=== PATIENT | male | born 1990 | race Caucasian/White ===

== ENCOUNTER 2023-02-15 00:42 | Emergency (ER) | payer OTHER, SELFPAY ==
[2023-02-15 00:45] VITALS: BP 141/87
[2023-02-15 01:29] LABS: Hematocrit 42.4 % (39.0-52.0); Hemoglobin 15.5 g/dL (13.0-18.0); Mean Corp Hgb Conc. 36.6 g/dL (33.0-37.0); Mean Corpuscular Hgb 32.4 pg (27.0-31.0); Mean Corpuscular Volume 88.5 fL (80.0-94.0); Mean Platelet Volume 8.7 fL (7.4-10.4); Platelet Count 270 10^3/uL (130-400); Red Blood Cell Count 4.79 10^6/uL (4.70-6.10); Red Cell Dist. Width 12.3 % (11.5-14.5); White Blood Cell Count 8.4 10^3/uL (4.8-10.8)
[2023-02-15 01:45] LABS: ALT (SGPT) 31 U/L (0-50); AST (SGOT) 35 U/L (17-59); Albumin 4.7 g/dl (3.5-5.0); Alkaline Phosphatase 73 U/L (38-126); Blood Urea Nitrogen 7 mg/dl (9-20); Calcium 9.5 mg/dl (8.4-10.2); Carbon Dioxide 24 mmol/L (22-30); Chloride 107 mmol/L (98-107); Glucose 90 mg/dl (70-99); Sodium 139 mmol/L (135-145); Total Bilirubin 0.7 mg/dl (0.2-1.3); eGFR > 60.00
[2023-02-15 01:54] LABS: Troponin I < 0.012 ng/ml
== END 2023-02-15 02:30 | disposition left against medical advice (07) ==
LOC: EMR 00:42
PROVIDERS: EMERGENCY PHYSICIAN Emergency Medicine
DX: R07.89 Other chest pain (principal); Z53.21 Procedure and treatment not carried out due to patient leaving prior to being seen by health care provider
CPT/HCPCS: 99281; 80053; 84484; 85027; 93005

== ENCOUNTER 2023-06-26 03:46 | Emergency (ER) | payer OTHER, SELFPAY ==
[2023-06-26 03:48] VITALS: BP 140/92
--- NOTE | 2023-06-26 04:23 | EDRN ---
had no vodka today. Pt states 'at least today I can remember how much I drank'. Pt states that last drink was 3 hours ago. Pt has no shakes or termers at present. Pt alert and oriented. Pt states that he wants to stop drinking.
[2023-06-26 04:35] VITALS: BP 130/72
--- NOTE | 2023-06-26 04:39 | ED.GENMED ---
History of Present Illness
General
Chief Complaint: Alcohol Problem
Source: patient
Exam Limitations: none
Time Seen by Provider: 06/26/23 04:06
Nursing documentation reviewed up to this point in time: agreed with
Travel History
Have you had any contact with someone who has COVID-19?: No
Do you have any symptoms of coronavirus? Fever > 100 degrees, chills, cough, shortness of breath, sore throat, loss of taste or smell, muscle aches, or headache?: No
History of Present Illness
History of Present Illness:
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
Last alcohol was 3 hours ago, no suicidal thoughts, never had a DUI, tells me he does not know if he gets shaky because he never goes more than a day without drinking
Past History
Past History
ED Past Medical History: Asthma, Psychiatric (Anxiety) and Other (History of eczema)
ED Past Surgical History: None
Social History
Tobacco: Smoker
Alcohol: Daily
Drug: None
Personal: Single
Living: with family
Employment: Employed
Family History
Family History: Other
Review of Systems
Review of Systems
All Other Systems: Not applicable
Psychiatric: Denies depression or suicidal
Phy Exam
Physical Exam
Physical Exam:
Physical Exam
General: 33 male cooperative
Neck: No jaundice
Heart: s1/s2 regular rate and rhythm, no murmur. equal radial pulses.
Lungs: no acute respiratory distress. clear bilaterally
Abdomen: Nontender
Neuro: alert and oriented. no focal neurological deficits no asterixis no tremor
Skin: no rash
Psychiatric: Cooperative
Extremities: no edema.
Scores
Withdrawal Assessment of Alcohol
Withdrawal Assessment Completed?: No
Course
Orders/Labs/Results
Orders:
Orders
06/26/23 04:24
Warm Handoff Consult ONCE
Patient agreeable to Warm Hand off: Yes
Call made to [phone]: Left Message for followup
06/26/23 05:23
Acetaminophen Urgent
Alcohol Urgent
Complete Blood Count/With Diff Urgent
Comprehensive Metabolic Panel Urgent
Salicylate Urgent
06/26/23 05:36
Fentanyl, Urine Urgent
Urine Drug Abuse Screen Urgent
Date Specimen was Collected: 06/26/23
Time Specimen was Collected: 05:34
Abnormal Lab Results
06/26/23 06/26/23
05: 05:36
MCH 31.8 H pg
(27.0-31.0)
Absolute Monos (auto) 0.7 H 10^3/uL
(0.1-0.6)
Eosinophils % 7.0 H %
(0-6)
Chloride 111 H mmol/L
(98-107)
Carbon Dioxide 20 L mmol/L
(22-30)
Glucose 114 H mg/dl
(70-99)
Salicylates < 1.0 L mg/dl
(2.0-20.0)
Acetaminophen < 10 L ug/ml
(10-30)
Urine Cocaine Screen Positive H
(Negative)
06/26/23 05:23
06/26/23 05:23
Vital Signs
Initial and Last Documented VS:
Initial Vital Signs
Temp Pulse Resp BP Pulse Ox
98 F 94 22 140/92 100
06/26/23 03:48 06/26/23 03:48 06/26/23 03:48 06/26/23 03:48 06/26/23 03:48
Last Documented Vital Signs
Temp Pulse Resp BP Pulse Ox
98 F 94 16 130/72 97
06/26/23 03:48 06/26/23 04:35 06/26/23 04:35 06/26/23 04:35 06/26/23 04:35
MDM/Problems Addressed
Differential Diagnosis Includes:
Alcoholism alcohol intoxication, alcohol use disorder
MDM/Problems Addressed:
Alcoholism
Chronic conditions affecting care:
Alcoholism
Acute Exacerbation and/or Progression of Chronic Illness:
Alcoholism
*Critical Care Note
Total Time (30-74mins, 75-104mins- exclusive of procedures): Not Applicable
Update Note
Update Note:
Patient requesting alcohol rehab reviewed with [facility] requesting lab work and UDS
ED Attending Note
-
Portions of this chart may have been created with voice recognition software.� Occasional wrong word or��sound alike� substitutions may have occurred due to the inherent limitations of voice recognition software.
Discharge Plan
Departure
Patient Disposition: Other
Date of Disposition: 06/26/23
Time of Disposition: :23
Patient with high blood pressure during this ER visit?: No
Condition: Good
Discharge Problem:
Alcohol abuse
Instructions: Alcohol Use Disorder (DC)
Prescriptions:
No Action
No Current Medications
0
Referrals:
UNKNOWN - PT DOES,NOT KNOW [Family Provider] -
Interventions
Interventions:
*Risk Screen - Suicide Last Done: 06/26/23 03:48
*General Assessment Last Done: 06/26/23 03:59
*Neglect/Abuse Screening Last Done: 06/26/23 03:48
ED- Fall Risk Assessment Last Done: 06/26/23 03:59
*ED COVID-19 Vaccine History Last Done: 06/26/23 03:59
ED- Neurological Assessment Last Done: 06/26/23 03:59
ED-Psychological Assessment Last Done: 06/26/23 03:59
Discharge Date and Time
Print Language: DOMINICAN
[2023-06-26 05:42] LABS: % Basophils 0.8 % (0-2); % Immature Granulocytes 0.4 % (0-0.5); % Lymphocytes 22.7 % (20.5-51.1); % Monocytes 7.8 % (1.7-9.3); % Neutrophils 61.3 % (42.2-75.2); Absolute Basophils 0.1 10^3/uL (0-0.2); Absolute Eosinophils 0.6 10^3/uL (0-0.7); Absolute Lymphocytes 1.9 10^3/uL (1.2-3.4); Absolute Monocytes 0.7 10^3/uL (0.1-0.6); Absolute Neutrophils 5.2 10^3/uL (1.4-6.5); Hematocrit 45.4 % (39.0-52.0); Mean Corp Hgb Conc. 35.2 g/dL (33.0-37.0); Mean Corpuscular Hgb 31.8 pg (27.0-31.0); Mean Corpuscular Volume 90.3 fL (80.0-94.0); Mean Platelet Volume 8.9 fL (7.4-10.4); Nucleated Red Blood Cells % 0 % (-); Platelet Count 244 10^3/uL (130-400); Red Blood Cell Count 5.03 10^6/uL (4.70-6.10); Red Cell Dist. Width 11.9 % (11.5-14.5); White Blood Cell Count 8.5 10^3/uL (4.8-10.8)
[2023-06-26 05:52] LABS: ALT (SGPT) 27 U/L (0-50); AST (SGOT) 27 U/L (17-59); Acetaminophen < 10 ug/ml (10-30); Albumin 4.7 g/dl (3.5-5.0); Alcohol 133 mg/dl; Alkaline Phosphatase 68 U/L (38-126); Blood Urea Nitrogen 10 mg/dl (9-20); Calcium 9.6 mg/dl (8.4-10.2); Carbon Dioxide 20 mmol/L (22-30); Chloride 111 mmol/L (98-107); Glucose 114 mg/dl (70-99); Salicylate < 1.0 mg/dl (2.0-20.0); Sodium 143 mmol/L (135-145); Total Bilirubin 0.4 mg/dl (0.2-1.3); Total Protein 7.9 g/dl (6.3-8.2); eGFR > 60.00
[2023-06-26 06:00] VITALS: BP 122/64
[2023-06-26 06:00] LABS: Amphetamines Negative (Negative); Barbiturates Negative (Negative); Benzodiazepines Negative (Negative); Buprenorphine Negative (Negative); Cocaine Positive (Negative); Marijuana Negative (Negative); Methadone Negative (Negative); Methamphetamines Negative (Negative); Opiates Negative (Negative); Phencyclidine Negative (Negative); Tricyclic Antidepressants Negative (Negative)
[2023-06-26 06:10] LABS: Fentanyl, Urine Negative (Negative)
== END 2023-06-26 08:40 | disposition left against medical advice (07) ==
LOC: EMR 03:46
PROVIDERS: EMERGENCY PHYSICIAN Emergency Medicine
DX: F10.20 Alcohol dependence, uncomplicated (principal); F17.200 Nicotine dependence, unspecified, uncomplicated; J45.909 Unspecified asthma, uncomplicated
CPT/HCPCS: 99283; 80053; 80143; 80179; 80306; 80307; 82077; 85025

== ENCOUNTER 2023-08-05 22:06 | Emergency (ER) | payer OTHER, SELFPAY ==
[2023-08-05 22:07] VITALS: BP 143/85
== END 2023-08-05 22:43 | disposition left against medical advice (07) ==
LOC: EMR 22:06
DX: R07.9 Chest pain, unspecified (principal); Z53.21 Procedure and treatment not carried out due to patient leaving prior to being seen by health care provider; L30.9 Dermatitis, unspecified
CPT/HCPCS: 93005

== ENCOUNTER 2024-03-26 14:08 | Emergency (ER) | payer OTHER, SELFPAY ==
[2024-03-26 14:09] VITALS: BP 150/89
[2024-03-26 14:29] LABS: % Basophils 0.8 % (0-2); % Immature Granulocytes 0.5 % (0-0.5); % Lymphocytes 19.3 % (20.5-51.1); % Monocytes 11.7 % (1.7-9.3); % Neutrophils 65.7 % (42.2-75.2); Absolute Basophils 0.1 10^3/uL (0-0.2); Absolute Eosinophils 0.2 10^3/uL (0-0.7); Absolute Lymphocytes 1.5 10^3/uL (1.2-3.4); Absolute Monocytes 0.9 10^3/uL (0.1-0.6); Absolute Neutrophils 5.3 10^3/uL (1.4-6.5); Hematocrit 39.1 % (39.0-52.0); Hemoglobin 13.4 g/dL (13.0-18.0); Mean Corp Hgb Conc. 34.3 g/dL (33.0-37.0); Mean Corpuscular Hgb 32.1 pg (27.0-31.0); Mean Corpuscular Volume 93.5 fL (80.0-94.0); Mean Platelet Volume 8.6 fL (7.4-10.4); Nucleated Red Blood Cells % 0 % (-); Platelet Count 242 10^3/uL (130-400); Red Blood Cell Count 4.18 10^6/uL (4.70-6.10); Red Cell Dist. Width 12.5 % (11.5-14.5)
[2024-03-26 14:42] LABS: ALT (SGPT) 103 U/L (0-50); AST (SGOT) 71 U/L (17-59); Albumin 4.9 g/dl (3.5-5.0); Alkaline Phosphatase 70 U/L (38-126); Blood Urea Nitrogen 11 mg/dl (9-20); Calcium 9.5 mg/dl (8.4-10.2); Carbon Dioxide 26 mmol/L (22-30); Chloride 102 mmol/L (98-107); Glucose 115 mg/dl (70-99); Sodium 138 mmol/L (135-145); Total Bilirubin 0.6 mg/dl (0.2-1.3); Total Protein 8.5 g/dl (6.3-8.2); eGFR > 60.00
[2024-03-26 14:48] LABS: Potassium 4.4 mmol/L (3.5-5.1)
--- NOTE | 2024-03-26 15:59 | ED.GENMED ---
History of Present Illness
General
Chief Complaint: Dizziness
Source: patient
Exam Limitations: none
Time Seen by Provider: 03/26/24 15:42
Nursing documentation reviewed up to this point in time: agreed with
History of Present Illness
History of Present Illness:
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 He reports prior to arrival he was standing and suddenly started feeling off balance as if' I was going to fall over.' He did not fall. He denies feeling room spinning
sensation. He denies any associate headache. This occurred around 12 PM. He feels better now. He denies any visual disturbance. He went to the school nurse who recommended he come to the ER. He denies any nausea vomiting chest pain shortness
of breath.
He feels that his symptoms are because he is exhausted and not sleeping. He uses alcohol and does drink every day at least a sixpack from 5 PM to around 8 PM. He last drank yesterday. He however does not sleep and maybe only gets 3-4 hours of
sleep at night.
He denies any recent fever chills illness. 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 He denies any abdominal pain
He denies any abdominal pain. He has not seen his pcp in yrs. He is aware that his lfts are elevated.
Past History
Past History
ED Past Medical History: Asthma, Psychiatric (Anxiety) and Other (History of eczema)
ED Past Surgical History: None
Social History
Tobacco: Smoker
Alcohol: Daily
Drug: None
Personal: Single
Living: with family
Employment: Employed
Family History
Family History: Other
Review of Systems
Review of Systems
Allergies reviewed?: Yes
All Other Systems: ROS reviewed and negative except as documented in HPI and ROS
Constitutional: Reports no symptoms; Denies fever
Respiratory: Reports no symptoms
Cardiac: Reports no symptoms
ABD/GI: Reports no symptoms; Denies abdominal pain, vomiting or diarrhea
: Reports no symptoms
Musculoskeletal: Reports no symptoms
Skin: Reports no symptoms
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
Phy Exam
General Physical Exam
General Presentation: no apparent distress
General age: appears stated age
General Skin: warm and dry
General Habitus: normal
General Mental: alert
General Hydration: appears well hydrated
ENT Exam
ENT Exam: EOMI and neck supple
Eye Exam
Eye Exam: PERRL, EOMI and other (No nystagmus bilaterally)
Eye Exam General: PERRL: bilateral and EOM intact: bilateral
Pupil Exam: Bilateral: round and reactive
Cardiovascular Exam
Cardiovascular Exam: regular rate/rhythm, no murmur and normal peripheral pulses
Pulmonary Exam
Pulmonary Exam: lungs clear and no respiratory distress
Neurological Exam
Neurological Exam: alert, oriented x3, no motor deficits, no sensory deficits, speech normal and other (Ambulatory in the treatment area with a steady gait)
Cerebellar
Cerebellar Function: normal finger to nose
Musculoskeletal Exam
Musculoskeletal Exam: full ROM
Skin Exam
Skin Exam: normal color and warm/dry
Psychiatric Exam
Psychiatric Exam: normal mood/affect
Course
Orders/Labs/Results
Orders:
Orders
03/26/24 14:12
ECG [Electrocardiogram (*1)] Urgent
Reason for Study: Vertigo / Dizzy
EKG- Treatment ONCE
03/26/24 14:17
Complete Blood Count/With Diff Urgent
Comprehensive Metabolic Panel Urgent
Abnormal Lab Results
03/26/24
14:17
RBC 4.18 L 10^6/uL
(4.70-6.10)
MCH 32.1 H pg
(27.0-31.0)
Absolute Monos (auto) 0.9 H 10^3/uL
(0.1-0.6)
Lymphocytes % 19.3 L %
(20.5-51.1)
Monocytes % 11.7 H %
(1.7-9.3)
Glucose 115 H mg/dl
(70-99)
AST 71 H U/L
(17-59)
ALT 103 H U/L
(0-50)
Total Protein 8.5 H g/dl
(6.3-8.2)
03/26/24 14:17
03/26/24 14:17
Vital Signs
Initial and Last Documented VS:
Initial Vital Signs
Temp Pulse Resp BP Pulse Ox
97.8 F 94 18 150/89 100
03/26/24 14:03/26/24 14:03/26/24 14:09 03/26/24 14:09 03/26/24 14:09
Last Documented Vital Signs
Temp Pulse Resp BP Pulse Ox
97.8 F 94 18 150/89 100
03/26/24 14:03/26/24 14:09 03/26/24 14:03/26/24 14:09 03/26/24 14:09
Registered Dietetic Technician consulted with Physician
Registered Dietetic Technician consulted with physician?: Yes
Name of Physician Consulted: noh
MDM/Problems Addressed
Differential Diagnosis Includes:
Not limited to dehydration, electrolyte abnormality, less likely stroke
MDM/Problems Addressed:
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 He went to the school nurse was sent here for evaluation. He had no
associated chest pain headache blurry vision nausea vomiting. He feels fine and wants to go home. He does not sleep at night and feels that this may be from lack of sleep. He does admit to daily alcohol use and drinks at least a sixpack of [place]
light every evening from around 5 PM to 8 PM. He did drink last night. No prior history of withdrawal seizures. He acknowledged that he fell out of his bed several days ago but has not had a headache since. CAT scan was recommended but he
declined. His liver functions are elevated he is aware of this. He has not seen his family doctor in years but does have a local family doctor. Though I encouraged CAT scan he declines and wants to go home. He is ambulatory with a steady gait
and is neurologically intact. Discussed the importance of alcohol cessation to prevent liver disease. I did offer him [facility] however he tells me that he does have alcohol resources already.
He does want to go home.
He is in no acute distress case reviewed ED physician discussed however to return if any worsening of symptoms
*Pulse Oximetry
Patient hypoxic: no
*EKG
Interpreted by ED Provider?: Yes
Interpretation: normal
Comparison EKG: no changes
Heart Rate: 79
Rate: normal
Rhythm: sinus
Ischemia: no ischemia
*Critical Care Note
Total Time (30-74mins, 75-104mins- exclusive of procedures): Not Applicable
ED Attending Note
-
Portions of this chart may have been created with voice recognition software.� Occasional wrong word or��sound alike� substitutions may have occurred due to the inherent limitations of voice recognition software.
Discharge Plan
Departure
Patient Disposition: Home (Routine Discharge)
Date of Disposition: 03/26/24
Time of Disposition: 16:24
Patient with high blood pressure during this ER visit?: Yes
Condition: Fair
Covid-19: Not Applicable
Discharge Problem:
Dizziness
Instructions: Dizziness, BLOOD PRESSURE
Prescriptions:
No Action
No Current Medications
0
Referrals:
UNKNOWN - PT DOES,NOT KNOW [Family Provider] -
Activity Restrictions/Additional Instructions:
As discussed a CAT scan was recommended however you declined. Please return if any worsening of symptoms including any continued balance issues ,headache ,nausea ,vomiting visual changes. Please follow-up with your family doctor for further
evaluation of your symptoms as well as your elevated liver functions. This is likely from alcohol use. You were offered but declined as you stated use half previous information for alcohol abuse/cessation resources.
Interventions
Interventions:
*Risk Screen - Suicide Last Done: 03/26/24 14:09
Discharge Date and Time
Print Language: BOTSWANAN
== END 2024-03-26 16:55 | disposition home or self-care (01) ==
LOC: EMR 14:08
PROVIDERS: EMERGENCY PHYSICIAN Emergency Medicine
DX: R42 Dizziness and giddiness (principal); J45.909 Unspecified asthma, uncomplicated; F17.200 Nicotine dependence, unspecified, uncomplicated
CPT/HCPCS: 99283; 80053; 85025; 93005

== ENCOUNTER 2024-09-10 23:39 | Emergency (ER) | payer OTHER, SELFPAY ==
[2024-09-10 23:42] VITALS: BP 159/97
[2024-09-11 00:09] LABS: Hematocrit 40.1 % (39.0-52.0); Hemoglobin 14.3 g/dL (13.0-18.0); Mean Corp Hgb Conc. 35.7 g/dL (33.0-37.0); Mean Corpuscular Volume 92.6 fL (80.0-94.0); Nucleated Red Blood Cells % 0 % (-); Platelet Count 284 10^3/uL (130-400); Red Cell Dist. Width 12.1 % (11.5-14.5)
[2024-09-11 00:20] LABS: ALT (SGPT) 191 U/L (0-50); AST (SGOT) 120 U/L (17-59); Albumin 5.2 g/dl (3.5-5.0); Alkaline Phosphatase 56 U/L (38-126); Blood Urea Nitrogen 9 mg/dl (9-20); Calcium 9.8 mg/dl (8.4-10.2); Carbon Dioxide 25 mmol/L (22-30); Chloride 104 mmol/L (98-107); Glucose 152 mg/dl (70-99); Lipase 291 U/L (23-300); Potassium 4.1 mmol/L (3.5-5.1); Sodium 140 mmol/L (135-145); Total Protein 9.0 g/dl (6.3-8.2); eGFR > 60.00
[2024-09-11 00:38] VITALS: BP 148/101
[2024-09-11 01:00] VITALS: BP 136/90
[2024-09-11 01:28] VITALS: BMI 32.2
[2024-09-11 01:40] LABS: Troponin I < 0.012 ng/ml
[2024-09-11 02:00] VITALS: BP 136/76
[2024-09-11 03:00] VITALS: BP 139/71
[2024-09-11 04:00] VITALS: BP 131/74
--- NOTE | 2024-09-11 04:24 | ED.GENMED ---
History of Present Illness
General
Chief Complaint: Abdominal Pain
Source: patient
Exam Limitations: none
Time Seen by Provider: 09/11/24 02:42
Nursing documentation reviewed up to this point in time: agreed with
History of Present Illness
History of Present Illness:
34-year-old male presenting to the emergency department today with concerns of left upper quadrant abdominal pain on and off the last 2 weeks but worsening tonight which prompted him to come to the ER. Denies nausea vomiting or changes in bowel
movements. Denies any specific trauma to the area. Denies any recent history of trauma surgery mobilization, shortness of breath associated
Past History
Past History
ED Past Medical History: Asthma, Psychiatric (Anxiety) and Other (History of eczema)
ED Past Surgical History: None
Social History
Tobacco: Smoker
Alcohol: Daily
Drug: None
Personal: Single
Living: with family
Employment: Employed
Family History
Family History: Other
Review of Systems
Review of Systems
Allergies reviewed?: Yes
All Other Systems: ROS reviewed and negative except as documented in HPI and ROS
Phy Exam
Physical Exam
Physical Exam:
GENERAL: Alert , in no apparent distress
EYE: pupils equal and reactive
NECK: Supple, no significant adenopathy.
ENT: o/p clr, mmm.
CARDIAC: Regular rate and rhythm .
LUNGS: Clear breath sounds bilaterally, no acute respiratory distress, no wheezes/rales/rhonchi
ABDOMEN: Left-sided left upper quadrant abdominal pain to palpation otherwise soft abdomen
NEUROLOGICAL: Alert and oriented, no focal neuro deficits
SKIN: Warm and dry, skin intact.
MUSCULOSKELETAL: No edema, well perfused.
PSYCH: Normal and appropriate interaction.
Course
Orders/Labs/Results
Orders:
Orders
09/10/24 23:45
Electrocardiogram (*1) Urgent
Reason for Study: Chest Pain
EKG- Treatment ONCE
09/10/24 23:52
Complete Blood Count/With Diff Urgent
09/10/24 23:53
Comprehensive Metabolic Panel Urgent
Lipase Urgent
Troponin I Urgent
09/11/24 03:32
CT Abd/Pel (IV only)-DH only Urgent
Comment:
Reason For Exam: left sided abd pain
0.9% Sodium Chloride 1000 ml [Nss] 1,000 ml IV BOLUS
Famotidine [Pepcid] 20 mg IV NOW STA
Ondansetron Injectable [Zofran] 4 mg IV NOW STA
Abnormal Lab Results
09/10/24 09/10/24
23:52 23:53
RBC 4.33 L 10^6/uL
(4.70-6.10)
MCH 33.0 H pg
(27.0-31.0)
Absolute Monos (auto) 0.8 H 10^3/uL
(0.1-0.6)
Monocytes % 10.3 H %
(1.7-9.3)
Glucose 152 H mg/dl
(70-99)
AST 120 H U/L
(17-59)
ALT 191 H U/L
(0-50)
Total Protein 9.0 H g/dl
(6.3-8.2)
Albumin 5.2 H g/dl
(3.5-5.0)
09/10/24 23:52
09/10/24 23:53
Vital Signs
Initial and Last Documented VS:
Initial Vital Signs
Temp Pulse Resp BP Pulse Ox
98.0 F 113 20 159/97 96
09/10/24 23:42 09/10/24 23:42 09/10/24 23:42 09/10/24 23:42 09/10/24 23:42
Last Documented Vital Signs
Temp Pulse Resp BP Pulse Ox
98.0 F 97 21 131/74 98
09/10/24 23:42 09/11/24 05:15 09/11/24 01:32 09/11/24 04:00 09/11/24 04:30
MDM/Problems Addressed
MDM/Problems Addressed:
34-year-old male presenting to the emergency department today with concerns of left-sided abdominal pain worsening tonight. Mainly to the left upper quadrant. Mildly tachycardic on arrival but otherwise vital signs are normal. Labs showing
slightly elevated liver function tests troponin negative EKG nonischemic. CT scan obtained considering reproducible pain to left side of the abdomen. No emergent findings seen. He was notified of his elevated liver function test but otherwise
will follow-up closely with GI. Return precautions given.
*Pulse Oximetry
SaO2: 97
Oxygen Mode of Delivery: Room air
Patient hypoxic: no (98)
*Critical Care Note
Total Time (30-74mins, 75-104mins- exclusive of procedures): Not Applicable
ED Attending Note
-
Portions of this chart may have been created with voice recognition software.� Occasional wrong word or��sound alike� substitutions may have occurred due to the inherent limitations of voice recognition software.
Discharge Plan
Departure
Patient Disposition: Home (Routine Discharge)
Date of Disposition: 09/11/24
Time of Disposition: 06:13
Patient with high blood pressure during this ER visit?: No
Condition: Good
Covid-19: Not Applicable
Discharge Problem:
Abdominal pain
Instructions: Abdominal Pain
Prescriptions:
New
pantoprazole [Protonix] 40 mg tablet,delayed release (DR/EC)
40 mg PO DAILY Qty: 10 0RF
Referrals:
Earnestine Srivastava MD [Active, Gastroenterology] - Follow up in 10 days
UNKNOWN - PT DOES,NOT KNOW [Family Provider]
Activity Restrictions/Additional Instructions:
You came to the emergency department today with concerns of abdominal pain. Here you had a reassuring assessment. You had slight elevation of liver function test please follow-up closely with GI for further assessment. Return for any worsening,
new or concerning symptoms.
Interventions
Interventions:
*Risk Screen - Suicide Last Done: 09/10/24 23:42
*Neglect/Abuse Screening Last Done: 09/10/24 23:42
*ED- Fall Risk Assessment Last Done: 09/10/24 23:42
*ED COVID-19 Vaccine History Last Done: 09/10/24 23:42
MX-Hkzhsm-Vrtlkzhcbg Assessment Last Done: 09/11/24 01:29
Discharge Date and Time
Print Language: PASHTO
[2024-09-11] MEDS: NSS 1000 IV (04:56)
[2024-09-11] MEDS: PEPCID 20 MG IV (04:57)
[2024-09-11 07:01] VITALS: BP 140/96
== END 2024-09-11 07:03 | disposition home or self-care (01) ==
LOC: EMR 23:39
PROVIDERS: EMERGENCY PHYSICIAN Emergency Medicine
DX: R10.12 Left upper quadrant pain (principal); R79.89 Other specified abnormal findings of blood chemistry; J45.909 Unspecified asthma, uncomplicated; F17.200 Nicotine dependence, unspecified, uncomplicated
CPT/HCPCS: 96374; 96361; 99284; 74177; 80053; 83690; 84484; 85025; 93005; Q9967